=== PATIENT | female | born 2000 | race Caucasian/White ===

== ENCOUNTER → 2023-07-05 | Outpatient (CLI) | payer OTHER | LOC: M WHC 14:58 | PROVIDERS: ATTEND Nurse Practitioner Women's Health | DX: O44.10 Complete placenta previa with hemorrhage, unspecified trimester (principal); Z3A.32 32 weeks gestation of pregnancy ==

== ENCOUNTER 2023-08-13 03:02 | Outpatient (CLI) | payer OTHER ==
[~2023-08-13] VITALS: Ht 162.6 cm; Wt 90.1 kg
[2023-08-13 03:20] VITALS: BP 144/74
[2023-08-13] MEDS ORDERED: PRENTAB9 PO (03:21)
[2023-08-13 04:03] VITALS: BP 143/65
[2023-08-13 04:36] LABS: HEMATOCRIT 32.2 % (36.0-47.0); HEMOGLOBIN 10.7 g/dl (12.0-15.5); MEAN CORPUSCULAR HEMOGLOBIN 27.7 pg (27.0-33.0); MEAN CORPUSCULAR HGB CONC 33.2 g/dl (32.0-36.5); MEAN CORPUSCULAR VOLUME 83.4 fl (80.0-96.0); PLATELET COUNT, AUTOMATED 325 10^3/uL (150-450); RED BLOOD COUNT 3.86 10^6/uL (4.00-5.40); WHITE BLOOD COUNT 11.7 10^3/uL (4.0-10.0)
[2023-08-13 04:56] LABS: TOTAL PROTEIN,RANDOM URINE 7.6 MG/DL (0.0-14.0)
[2023-08-13 05:00] LABS: APPEARANCE, URINE CLEAR (CLEAR); BACTERIA, URINE AUTO 1+ (NEGATIVE); BILIRUBIN, URINE AUTO NEGATIVE (NEGATIVE); BLOOD, URINE BLOOD 1+ (NEGATIVE); COLOR, URINE STRAW (YELLOW); GLUCOSE, URINE (UA) AUTO NEGATIVE (NEGATIVE); KETONE, URINE AUTO NEGATIVE (NEGATIVE); LEUKOCYTE ESTERASE, URINE AUTO NEGATIVE (NEGATIVE); NITRITE, URINE AUTO NEGATIVE (NEGATIVE); PROTEIN, URINE AUTO NEGATIVE (NEGATIVE); RBC, URINE AUTO 0 /HPF (0-3); SPECIFIC GRAVITY URINE AUTO 1.006 (1.002-1.035); SQUAMOUS EPITHELIAL CELL UR AU 1 /HPF (0-6); UROBILINOGEN, URINE AUTO 0.2 mg/dL (0.0-2.0); WBC, URINE AUTO 0 /HPF (0-3)
[2023-08-13] MEDS ORDERED: ACETAMINOPHEN 500 MG TAB PO ONE (05:00)
[2023-08-13] MEDS ORDERED: diphenhydrAMINE 50MG CAP PO ONE (05:00)
[2023-08-13 05:01] LABS: CREATININE,RANDOM URINE 34.4 MG/DL
[2023-08-13 05:02] LABS: ALBUMIN 2.6 G/DL (3.2-5.2); ALKALINE PHOSPHATASE 179 U/L (46-116); ALT/SGPT 19 U/L (7.0-40); AST/SGOT 19 U/L (<34); BILIRUBIN,TOTAL 0.9 MG/DL (0.3-1.2); BLOOD UREA NITROGEN 8 MG/DL (9-23); CARBON DIOXIDE LEVEL 22 MMOL/L (20-31); CHLORIDE LEVEL 106 MMOL/L (98-107); CREATININE FOR GFR 0.47 MG/DL (0.55-1.30); GLOMERULAR FILTRATION RATE > 60.0 (>60); GLUCOSE, FASTING 96 MG/DL (60-100); POTASSIUM SERUM 3.9 MMOL/L (3.5-5.1); SODIUM LEVEL 139 MMOL/L (136-145); TOTAL PROTEIN 6.4 G/DL (5.7-8.2)
== END 2023-08-13 04:26 | disposition home or self-care (01) ==
LOC: M LDO 03:02
PROVIDERS: ATTEND Obstetrics & Gynecology
DX: O47.1 False labor at or after 37 completed weeks of gestation (principal); Z3A.39 39 weeks gestation of pregnancy
CPT/HCPCS: 36415; 59025; 80053; 81001; 82570; 84156; 85027; G0463

== ENCOUNTER 2023-08-15 07:15 | Inpatient (IN) | payer OTHER ==
[2023-08-15] VITALS (29 sets, daily range): BP systolic 113–153; BP diastolic 55–83
[~2023-08-15] VITALS: Ht 162.6 cm; Wt 90.9 kg
[~2023-08-15 07:15] MED LIST: PRENTAB9 PO
[2023-08-15] MEDS ORDERED: ACET-683 PO (07:44)
[2023-08-15] MEDS ORDERED: HOME MED LIST COMPLETE! XX SCH (07:45)
[2023-08-15] MEDS ORDERED: LACTATED RINGER'S 1000 ML IV STA (08:03)
[2023-08-15] MEDS ORDERED: TRANEXAMIC ACID INJection 1,000 MG in NS 100 ML IV PRN (08:05)
[2023-08-15] MEDS ORDERED: OXYTOCIN DRIP 30 UNITS in IV 1 EA IV SCH (08:05)
[2023-08-15] MEDS ORDERED: LR 1,000 ML IV SCH (08:05)
[2023-08-15] MEDS ORDERED: METHYLERGONOVINE MALEATE 0.2MG/ML 1ML VIAL IM PRN (08:05)
[2023-08-15] MEDS ORDERED: OXYTOCIN DRIP 30 UNITS in IV 1 EA IV PRN ×6 (08:05)
[2023-08-15] MEDS ORDERED: LIDOCAINE 1% MDV 20ML VIAL INFIL PRN (08:05)
[2023-08-15] MEDS ORDERED: OXYTOCIN INJ 10UNITS/ML 1ML VIAL IV PRN (08:05)
[2023-08-15] MEDS ORDERED: OXYTOCIN INJ 10UNITS/ML 1ML VIAL IM PRN (08:05)
[2023-08-15 08:34] LABS: MEAN CORPUSCULAR HGB CONC 33.3 g/dl (32.0-36.5); PLATELET COUNT, AUTOMATED 321 10^3/uL (150-450); RED BLOOD COUNT 3.93 10^6/uL (4.00-5.40); WHITE BLOOD COUNT 13.7 10^3/uL (4.0-10.0)
[2023-08-15 08:56] LABS: CREATININE,RANDOM URINE 28.8 MG/DL
[2023-08-15 08:59] LABS: TOTAL PROTEIN,RANDOM URINE < 6.0 MG/DL (0.0-14.0)
[2023-08-15 09:02] LABS: URIC ACID 2.8 MG/DL (3.1-7.8)
[2023-08-15 09:04] LABS: LDH LACTATE DEHYDROGENASE 178 U/L (120-246)
[2023-08-15 09:05] LABS: ALT/SGPT 18 U/L (7.0-40); AST/SGOT 20 U/L (<34); BILIRUBIN,TOTAL 0.6 MG/DL (0.3-1.2); CREATININE FOR GFR 0.45 MG/DL (0.55-1.30); GLOMERULAR FILTRATION RATE > 60.0 (>60)
[2023-08-15] MEDS ORDERED: NALBUPHINE HCL 1MG/0.1ML (100MG/10ML) MDV IV ONE (10:15)
[2023-08-15] MEDS: LR 1,000 ML IV SCH ×2 (14:09→18:41)
[2023-08-15] MEDS ORDERED: LR 500 ML IV PRN (15:50)
[2023-08-15] MEDS ORDERED: EPIDURAL/PCA KEYS XX PRN (15:50)
[2023-08-15] MEDS ORDERED: NALOXONE INJ 0.4MG/1ML VIAL IV PRN (15:50)
[2023-08-15] MEDS ORDERED: diphenhydrAMINE 50MG/ML VIAL IV PRN (15:50)
[2023-08-15] MEDS ORDERED: ePHEDrine SULFATE 25 MG/5 ML(5MG/ML) SYRINGE IVP PRN (15:50)
[2023-08-15] MEDS ORDERED: ONDANSETRON 4MG 2ML VIAL IV PRN (15:50)
[2023-08-15] MEDS: FENTANYL/ROPIVACAINE/NACL BAG 100 ML EPIDURAL SCH ×2 (16:22→23:35)
[2023-08-16] VITALS (44 sets, daily range): BP systolic 63–157; BP diastolic 34–80; O2SAT 97–100
[2023-08-16] MEDS: LR 1,000 ML IV SCH (02:20)
[2023-08-16] MEDS ORDERED: OXYTOCIN 30UNITS IN 0.9% NaCl 500ML IV BAG As Ordered ONE (06:19)
[2023-08-16] MEDS: CARBOPROST TROMETHAMINE 250 MCG/ML AMP IM PRN ×2 (07:06→07:09)
[2023-08-16] MEDS ORDERED: ceFAZolin SOD 2 GM in IV 1 EA IV ONE (07:10)
[2023-08-16] MEDS ORDERED: CARBOPROST TROMETHAMINE 250 MCG/ML AMP IM ONE (07:10)
[2023-08-16 08:10] LABS: INR 1.14; PROTHROMBIN TIME 14.2 SECONDS (12.5-14.5)
[2023-08-16] MEDS ORDERED: LOMOTIL 2.5MG/0.025MG TABLET PO ONE (09:00)
[2023-08-16 09:05] LABS: HEMATOCRIT 23.6 % (36.0-47.0); MEAN CORPUSCULAR HEMOGLOBIN 28.2 pg (27.0-33.0); MEAN CORPUSCULAR HGB CONC 32.6 g/dl (32.0-36.5); MEAN CORPUSCULAR VOLUME 86.4 fl (80.0-96.0); PLATELET COUNT, AUTOMATED 302 10^3/uL (150-450); RED BLOOD COUNT 2.73 10^6/uL (4.00-5.40); WHITE BLOOD COUNT 17.3 10^3/uL (4.0-10.0)
[2023-08-16 09:05] LABS: HEMATOCRIT 30.6 % (36.0-47.0); HEMOGLOBIN 10.2 g/dl (12.0-15.5); MEAN CORPUSCULAR HEMOGLOBIN 29.1 pg (27.0-33.0); MEAN CORPUSCULAR HGB CONC 33.3 g/dl (32.0-36.5); MEAN CORPUSCULAR VOLUME 87.4 fl (80.0-96.0); PLATELET COUNT, AUTOMATED 285 10^3/uL (150-450)
[2023-08-16 09:10] LABS: HEMOGLOBIN 7.7 g/dl (12.0-15.5)
[2023-08-16 09:13] LABS: WHITE BLOOD COUNT 30.1 10^3/uL (4.0-10.0)
[2023-08-16 12:15] LABS: HEMATOCRIT 28.2 % (36.0-47.0); HEMOGLOBIN 9.4 g/dl (12.0-15.5); MEAN CORPUSCULAR HGB CONC 33.3 g/dl (32.0-36.5); PLATELET COUNT, AUTOMATED 329 10^3/uL (150-450); RED BLOOD COUNT 3.24 10^6/uL (4.00-5.40); WHITE BLOOD COUNT 24.1 10^3/uL (4.0-10.0)
[2023-08-16 12:26] LABS: INR 1.11; PROTHROMBIN TIME 13.9 SECONDS (12.5-14.5)
[2023-08-16 12:43] LABS: ALBUMIN 1.9 G/DL (3.2-5.2); ALKALINE PHOSPHATASE 156 U/L (46-116); ALT/SGPT 18 U/L (7.0-40); AST/SGOT 40 U/L (<34); BILIRUBIN,TOTAL 2.1 MG/DL (0.3-1.2); BLOOD UREA NITROGEN < 5 MG/DL (9-23); CALCIUM LEVEL 8.3 MG/DL (8.5-10.1); CARBON DIOXIDE LEVEL 17 MMOL/L (20-31); CHLORIDE LEVEL 104 MMOL/L (98-107); CREATININE FOR GFR 0.53 MG/DL (0.55-1.30); GLOMERULAR FILTRATION RATE > 60.0 (>60); GLUCOSE, FASTING 108 MG/DL (60-100); POTASSIUM SERUM 3.6 MMOL/L (3.5-5.1); SODIUM LEVEL 132 MMOL/L (136-145); TOTAL PROTEIN 4.9 G/DL (5.7-8.2)
[2023-08-16] MEDS ORDERED: MOM 30ML SUSPENSION UDC PO PRN (13:35)
[2023-08-16] MEDS ORDERED: ACETAMINOPHEN TAB 650MG DOSE (2X325MG) PO PRN (13:35)
[2023-08-16] MEDS ORDERED: DIBUCAINE 1% OINTMENT 30GM TOP PRN (13:35)
[2023-08-16] MEDS ORDERED: IBUPROFEN 600MG TAB PO PRN (13:35)
[2023-08-16] MEDS ORDERED: DOCUSATE SODIUM 100MG CAPSULE PO PRN (13:35)
[2023-08-16] MEDS ORDERED: METHYLERGONOVINE MALEATE 0.2 MG TAB PO PRN (13:35)
[2023-08-16] MEDS ORDERED: RHOGAM 300MCG (1500IU) INJ IM SCH (13:35)
[2023-08-16] MEDS: ACETAMINOPHEN 500 MG TAB PO PRN (14:16)
[2023-08-16] MEDS: IBUPROFEN 800 MG TAB PO PRN (18:45)
[2023-08-17 02:00] VITALS: BP 124/62; O2SAT 98
[2023-08-17] MEDS: IBUPROFEN 800 MG TAB PO PRN ×2 (03:58→14:40)
[2023-08-17 05:45] VITALS: BP 125/60; O2SAT 98
[2023-08-17 06:24] LABS: MEAN CORPUSCULAR HEMOGLOBIN 28.9 pg (27.0-33.0); MEAN CORPUSCULAR HGB CONC 34.1 g/dl (32.0-36.5); MEAN CORPUSCULAR VOLUME 84.6 fl (80.0-96.0); PLATELET COUNT, AUTOMATED 244 10^3/uL (150-450); RED BLOOD COUNT 2.46 10^6/uL (4.00-5.40); WHITE BLOOD COUNT 17.4 10^3/uL (4.0-10.0)
[2023-08-17 06:27] LABS: HEMOGLOBIN 7.1 g/dl (12.0-15.5)
[2023-08-17 06:28] LABS: HEMATOCRIT 20.8 % (36.0-47.0)
[2023-08-17] MEDS: PRENATAL VITAMINS CHEWABLE TABLET PO SCH (08:01)
[2023-08-17] MEDS: ACETAMINOPHEN 500 MG TAB PO PRN ×2 (08:04→18:36)
[2023-08-17 10:00] VITALS: BP 111/59; O2SAT 98
[2023-08-17 14:00] VITALS: BP_SYST 118; BP_SYST 136; BP_DIAS 56; BP_DIAS 59; O2SAT 97
[2023-08-17 18:00] VITALS: BP 126/60; O2SAT 100
[2023-08-17 22:00] VITALS: BP 131/60; O2SAT 98
[2023-08-18] MEDS: IBUPROFEN 800 MG TAB PO PRN ×2 (00:43→12:27)
[2023-08-18 02:00] VITALS: BP 124/60; O2SAT 99
[2023-08-18 06:00] VITALS: BP 120/57; O2SAT 99
[2023-08-18] MEDS: PRENATAL VITAMINS CHEWABLE TABLET PO SCH (07:43)
[2023-08-18] MEDS ORDERED: MEASLES,MUMPS,RUBELLA VACCINE INJ (MMR-II) SC.IMMUN ONE (09:00)
[2023-08-18] MEDS ORDERED: INFLUENZA QUADRIVALENT PF VACCINE 0.5ML SYRINGE IM.IMMUN ONE (09:00)
[2023-08-18 10:20] VITALS: BP 138/79
[2023-08-18 10:50] LABS: HEMATOCRIT 21.6 % (36.0-47.0); HEMOGLOBIN 7.3 g/dl (12.0-15.5); MEAN CORPUSCULAR HEMOGLOBIN 29.3 pg (27.0-33.0); MEAN CORPUSCULAR HGB CONC 33.8 g/dl (32.0-36.5); MEAN CORPUSCULAR VOLUME 86.7 fl (80.0-96.0); PLATELET COUNT, AUTOMATED 318 10^3/uL (150-450); RED BLOOD COUNT 2.49 10^6/uL (4.00-5.40)
[2023-08-18 14:00] VITALS: BP 139/64; O2SAT 98
[2023-08-18] MEDS: ACETAMINOPHEN 500 MG TAB PO PRN (16:50)
== END 2023-08-18 18:26 | disposition home or self-care (01) | DRG 807 ==
LOC: M LDO 07:15 → M LDI 07:50 → M OBS 08-16 13:57
PROVIDERS: ADMIT Obstetrics & Gynecology; ATTEND Obstetrics & Gynecology
PROC: 10E0XZZ Delivery of Products of Conception, External Approach (ICD-10-PCS; principal; 2023-08-16)
PROC: 0KQM0ZZ Repair Perineum Muscle, Open Approach (ICD-10-PCS; 2023-08-16)
PROC: 30233N1 Transfusion of Nonautologous Red Blood Cells into Peripheral Vein, Percutaneous Approach (ICD-10-PCS; 2023-08-16)
DX: O13.4 Gestational [pregnancy-induced] hypertension without significant proteinuria, complicating childbirth (principal); Z37.0 Single live birth; Z3A.40 40 weeks gestation of pregnancy; O70.1 Second degree perineal laceration during delivery; O72.1 Other immediate postpartum hemorrhage